=== PATIENT | female | born 1995 | race Caucasian/White ===

== ENCOUNTER 2017-07-16 12:42 | Emergency (ER) | payer SELFPAY ==
[~2017-07-16] VITALS: Ht 162.6 cm; Wt 60.0 kg
[~2017-07-16 12:42] MED LIST: LEXA10TA PO
[2017-07-16 13:05] VITALS: BP 127/84; PULSE 84; RESP 15; TEMP 98.7; O2SAT 100
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
== END 2017-07-16 13:50 | disposition left against medical advice (07) ==
LOC: NEPD 12:42
DX: O26.851 Spotting complicating pregnancy, first trimester (principal); Z3A.00 Weeks of gestation of pregnancy not specified
CPT/HCPCS: 99281